=== PATIENT | female | born 1985 | race Caucasian/White ===

== ENCOUNTER 2025-05-11 14:52 | Emergency (ER) | payer OTHER, SELFPAY ==
[2025-05-11 15:14] VITALS: BP 113/70
[2025-05-11 15:37] LABS: Hematocrit 32.4 % (37.0-47.0); Hemoglobin 10.2 g/dL (12.0-16.0); Mean Corp Hgb Conc. 31.5 g/dL (33.0-37.0); Mean Corpuscular Volume 87.3 fL (81.0-99.0); Nucleated Red Blood Cells % 0 %; Platelet Count 312 10^3/uL (130-400); Red Cell Dist. Width 15.9 % (11.5-14.5)
[2025-05-11 15:57] LABS: ALT (SGPT) 16 U/L (0-35); AST (SGOT) 16 U/L (14-36); Albumin 4.2 g/dl (3.5-5.0); Alkaline Phosphatase 32 U/L (38-126); Blood Urea Nitrogen 10 mg/dl (7-17); Calcium 8.9 mg/dl (8.4-10.2); Carbon Dioxide 27 mmol/L (22-30); Chloride 108 mmol/L (98-107); Glucose 86 mg/dl (70-99); Potassium 4.0 mmol/L (3.5-5.1); Sodium 140 mmol/L (135-145); Total Protein 6.9 g/dl (6.3-8.2); eGFR > 60.00
[2025-05-11 16:01] LABS: Troponin I < 0.012 ng/ml
[2025-05-11 17:49] VITALS: BP 105/63
[2025-05-11 18:00] VITALS: BP 103/63
[2025-05-11 18:19] VITALS: BP 139/86
--- NOTE | 2025-05-11 18:26 | ED.GENMED ---
History of Present Illness
General
Chief Complaint: Fainting Sensation
Time Seen by Provider: 05/11/25 18:09
History of Present Illness
History of Present Illness:
39-year-old female presents to the emergency department for evaluation of positional dizziness and general fatigue ongoing for the past 5 days. She notes that approximately 5 weeks ago she discontinued her levothyroxine feeling as though she could
manage this non pharmacologically. She felt well up until this past week. She reports low blood pressure particular when standing at home. No recent illnesses, no fever, no nausea or vomiting. No recent heavy menstrual cycles. Does have known
history of anemia as well but does not take iron supplement
Review of Systems
Review of Systems
Allergies reviewed?: Yes
All Other Systems: ROS reviewed and negative except as documented in HPI and ROS
Phy Exam
Physical Exam
Physical Exam:
GEN: Well appearing, NAD, WDWN
HEENT: Oral mucosa moist, no scleral icterus
Cardiac: Regular rate and rhythm, no murmurs
Lung: No respiratory distress, no tachypnea, lungs clear to auscultation bilaterally
MSK: No gross deformity or injuries
Skin: Good color, no pallor or jaundice, no rashes
Neuro: AO x3, moves all extremities freely
Psych: Calm, cooperative
Course
Orders/Labs/Results
Orders:
Orders
05/11/25 15:13
Electrocardiogram (*1) Urgent
Reason for Study: Chest Pain
EKG- Treatment ONCE
IV Insert/Care/Rem.- Treatment PRN
05/11/25 15:24
Complete Blood Count/With Diff Urgent
Comprehensive Metabolic Panel Urgent
Troponin I Urgent
05/11/25 18:26
0.9% Sodium Chloride 1000 ml [Nss] 1,000 ml IV BOLUS
Abnormal Lab Results
05/11/25
15:24
WBC 3.7 L 10^3/uL
(4.8-10.8)
RBC 3.71 L 10^6/uL
(4.20-5.40)
Hgb 10.2 L g/dL
(12.0-16.0)
Hct 32.4 L %
(37.0-47.0)
MCHC 31.5 L g/dL
(33.0-37.0)
RDW 15.9 H %
(11.5-14.5)
Monocytes % 11.2 H %
(1.7-9.3)
Chloride 108 H mmol/L
(98-107)
Alkaline Phosphatase 32 L U/L
(38-126)
05/11/25 15:24
05/11/25 15:24
Vital Signs
Initial and Last Documented VS:
Initial Vital Signs
Temp Pulse Resp BP Pulse Ox
98.3 F 92 15 113/70 100
05/11/25 15:14 05/11/25 15:14 05/11/25 15:14 05/11/25 15:14 05/11/25 15:14
Last Documented Vital Signs
Temp Pulse Resp BP Pulse Ox
98.3 F 73 12 111/70 100
05/11/25 15:14 05/11/25 19:45 05/11/25 19:45 05/11/25 19:00 05/11/25 19:45
MDM/Problems Addressed
MDM/Problems Addressed:
Patient appears clinically well at this time, she was able to stand without dizziness in the emergency department. Her labs are unremarkable. This may be related to her intentional discontinuation of levothyroxine which I have encouraged her to
restart. Recommend primary care follow-up
Comment
Comment:
EKG independently interpreted by me shows a normal sinus rhythm at a rate of [address] changes concerning for ischemia
*Pulse Oximetry
SaO2: 100
Oxygen Mode of Delivery: Room air
Patient hypoxic: no
*Critical Care Note
Total Time (30-74mins, 75-104mins- exclusive of procedures): Not Applicable
ED Attending Note
-
Portions of this chart may have been created with voice recognition software.� Occasional wrong word or��sound alike� substitutions may have occurred due to the inherent limitations of voice recognition software.
Discharge Plan
Departure
Patient Disposition: Home (Routine Discharge)
Date of Disposition: 05/11/25
Time of Disposition: 20:02
Patient with high blood pressure during this ER visit?: No
Discharge Problem:
Fatigue, Orthostasis
Instructions: Fatigue (DC)
Activity Restrictions/Additional Instructions:
Continue your thyroid medication for now however please discuss an alternative with your primary physician such as [facility]
Consider increase dietary iron
Interventions
Interventions:
*Risk Screen - Suicide Last Done: 05/11/25 15:14
*General Assessment Last Done: 05/11/25 15:14
*Neglect/Abuse Screening Last Done: 05/11/25 15:14
*ED- Fall Risk Assessment Last Done: 05/11/25 18:39
*ED COVID-19 Vaccine History Last Done: 05/11/25 15:14
*ED Influenza Vaccine History Last Done: 05/11/25 15:14
*Nursing Disposition Last Done: 05/11/25 20:30
ED- Cardiac Assessment Last Done: 05/11/25 18:39
ED- Neurological Assessment Last Done: 05/11/25 18:39
Discharge Date and Time
Discharge Date/Time: 05/11/25 20:30
Print Language: [id number]
[2025-05-11 18:33] VITALS: BMI 20.6
[2025-05-11] MEDS: NSS 1000 IV (18:36)
[2025-05-11 19:00] VITALS: BP 111/70
== END 2025-05-11 20:30 | disposition home or self-care (01) ==
LOC: EMR 14:52
PROVIDERS: Emergency Medicine; EMERGENCY PHYSICIAN Emergency Medicine; FAMILY PHYSICIAN Family Medicine Sports Medicine
DX: I95.1 Orthostatic hypotension (principal); R53.83 Other fatigue
CPT/HCPCS: 99283; 80053; 84484; 85025; 93005